=== PATIENT | female | born 1990 | race Caucasian/White ===

== ENCOUNTER 2016-03-10 11:10 | Emergency (ER) | payer OTHER ==
[2016-03-10 11:55] VITALS: BP 90/55; PULSE 82; RESP 16; TEMP 97.5; O2SAT 92
== END 2016-03-10 12:05 | disposition left against medical advice (07) ==
LOC: CED 11:10
DX: S41.151A Open bite of right upper arm, initial encounter (principal); W54.0XXA Bitten by dog, initial encounter; Z53.9 Procedure and treatment not carried out, unspecified reason